=== PATIENT | female | born 1970 | race Native Hawaiian/Other Pacific Islander ===

== ENCOUNTER 2016-09-20 10:52 | Outpatient (CLI) | payer BC | END 2016-09-20 19:23 | disposition home or self-care (01) | LOC: MAMMO 10:52 | DX: Z12.31 Encounter for screening mammogram for malignant neoplasm of breast (principal) | CPT/HCPCS: G0202-TC ==

== ENCOUNTER 2019-09-14 09:36 | Outpatient (CLI) | payer OTHER | END 2019-09-14 19:59 | disposition home or self-care (01) | LOC: MAMMO 09:36 | DX: Z12.31 Encounter for screening mammogram for malignant neoplasm of breast (principal) ==

== ENCOUNTER 2020-11-26 11:49 | Outpatient (CLI) | payer OTHER | END 2020-11-26 20:07 | disposition home or self-care (01) | LOC: RAD 11:49 | PROVIDERS: ATTEND Obstetrics & Gynecology | DX: Z13.820 Encounter for screening for osteoporosis (principal) ==